=== PATIENT | male | born 1955 | race Caucasian/White ===

== ENCOUNTER 2017-08-21 14:13 | Inpatient (IN) | payer MEDICAID ==
[~2017-08-21] VITALS: Ht 172.7 cm; Wt 83.7 kg
[2017-08-21] MEDS ORDERED: ASPIRIN 81 MG TABLET CHEW ONE (14:50)
[2017-08-21] MEDS ORDERED: PLEASE ENTER ALLERGIES MC SCH (15:00)
[2017-08-21] MEDS ORDERED: ASPIRIN 81 MG TABLET CHEW PO ONE (15:00)
[2017-08-21] MEDS ORDERED: OMEP-110 PO (15:09)
[2017-08-21] MEDS ORDERED: ENAL20TA PO (15:09)
[2017-08-21] MEDS ORDERED: ACET-1600 PO (15:09)
[2017-08-21 15:35] LABS: BASOPHILS # (AUTO) 0.06 x10^3/uL (0-0.1); BASOPHILS % (AUTO) 1 % (0-1); EOSINOPHILS # (AUTO) 0.08 x10^3/uL (0-0.4); EOSINOPHILS % (AUTO) 1 % (1-7); LYMPHOCYTES # (AUTO) 1.99 x10^3/uL (1-3.4); LYMPHOCYTES % (AUTO) 33 % (22-44); MD NO; MEAN CORPUSCULAR HEMOGLOBIN 30.3 pg (27.5-34.5); MEAN CORPUSCULAR VOLUME 91.9 fL (81-97); MEAN PLATELET VOLUME 8.8 fL (7.4-10.4); MONOCYTES # (AUTO) 0.47 x10^3/uL (0.2-0.8); MONOCYTES % (AUTO) 8 % (2-9); NEUTROPHILS # (AUTO) 3.51 x10^3/uL (1.8-6.8); NEUTROPHILS % (AUTO) 58 % (42-75); PLATELET COUNT 182 x10^3/uL (130-400); RED BLOOD COUNT 5.41 x10^6/uL (4.38-5.82); RED CELL DISTRIBUTION WIDTH 14.2 % (9.4-14.8)
[2017-08-21 15:48] LABS: ANION GAP 9 mmol/L (5-15); CALCIUM 8.6 mg/dL (8.5-10.1); CHLORIDE 107 mmol/L (98-107)
[2017-08-21 15:53] LABS: CREATININE 0.97 mg/dL (0.7-1.3); TROPONIN I < 0.015 ng/mL (0.000-0.045)
[2017-08-21] MEDS ORDERED: NITROGLYCERIN SINGLE TAB 0.4 MG SL PRN (16:30)
[2017-08-21] MEDS ORDERED: hydrALAzine 20 MG/ML, 1ML IVPush PRN (17:00)
[2017-08-21] MEDS ORDERED: SODIUM CHLORIDE 0.9%, 500ML IVBOLUS ONE (17:00)
[2017-08-21] MEDS ORDERED: ONDANSETRON 2MG/ML, 2ML IVPush PRN (17:00)
[2017-08-21 17:20] VITALS: BP 138/96
[2017-08-21 19:01] VITALS: BP 124/81
[2017-08-21] MEDS ORDERED: ZOLPIDEM 5MG TABLET PO PRN (21:30)
[2017-08-21 21:51] VITALS: BP 126/88
[2017-08-21] MEDS: LOSARTAN 50MG TABLET PO SCH (21:54)
[2017-08-21 23:54] LABS: TROPONIN I < 0.015 ng/mL (0.000-0.045)
[2017-08-22 00:43] VITALS: BP 118/73
[2017-08-22] MEDS: ACETAMINOPHEN 500 MG TABLET PO PRN ×2 (02:32→13:04)
[2017-08-22 05:43] LABS: CHOL/HDL RATIO 4.9; CHOLESTEROL, TOTAL 152 mg/dL (140-239); HDL CHOL % 20 % (26-37); HDL CHOLESTEROL (DIRECT) 31 mg/dL (40-60); LDL CHOLESTEROL,CALCULATED 85 mg/dL (54-169); LDL/HDL RATIO 2.7 (0.5-3.0); TRIGLYCERIDES 182 mg/dL (50-200); TROPONIN I < 0.015 ng/mL (0.000-0.045); VLDL CHOLESTEROL 36 mg/dL (0-25)
[2017-08-22] MEDS ORDERED: AMLO5TAB2 PO ×2 (06:07→06:18)
[2017-08-22] MEDS ORDERED: LOSA50TA2 PO (06:07)
[2017-08-22] MEDS: LOSARTAN 50MG TABLET PO SCH (07:59)
[2017-08-22 08:03] VITALS: BP 109/76
[2017-08-22] MEDS ORDERED: REGADENOSON 0.4 MG/5 ML SYRINGE ONE (08:18)
[2017-08-22] MEDS ORDERED: OMEPRAZOLE 20 MG CAPSULE.DR PO SCH (09:00)
[2017-08-22] MEDS ORDERED: ENALAPRIL 20MG TABLET PO SCH (09:00)
[2017-08-22] MEDS ORDERED: AMLODIPINE 5 MG TABLET PO SCH (09:00)
[2017-08-22 13:10] VITALS: BP 142/83
== END 2017-08-22 17:35 | disposition home or self-care (01) | DRG 305 ==
LOC: ED 16:02 → SUATTDRO 16:46 → EDIP 16:47 → 5SO 17:04
PROVIDERS: ADMIT Hospitalist; ATTEND Hospitalist
DX: I10 Essential (primary) hypertension (principal); K21.9 Gastro-esophageal reflux disease without esophagitis; Z79.82 Long term (current) use of aspirin; Z79.899 Other long term (current) drug therapy; Z91.041 Radiographic dye allergy status; Z86.19 Personal history of other infectious and parasitic diseases; Z82.49 Family history of ischemic heart disease and other diseases of the circulatory system; Z83.79 Family history of other diseases of the digestive system
CPT/HCPCS: 36415; 71046; 78452; 80048; 80061; 82040; 84484; 85025; 93005; 93017; 99285; J2405; J2785; A9502; C9898